=== PATIENT | female | born 1995 | race African-American/Black ===

== ENCOUNTER 2021-08-26 13:09 | Emergency (ER) | payer MEDICAID, OTHER ==
[~2021-08-26] VITALS: Ht 152.4 cm; Wt 73.0 kg
[2021-08-26 13:19] VITALS: BP 139/87
== END 2021-08-26 16:55 | disposition left against medical advice (07) ==
LOC: ER 13:09
DX: O20.9 Hemorrhage in early pregnancy, unspecified (principal); Z3A.00 Weeks of gestation of pregnancy not specified
CPT/HCPCS: 99281